=== PATIENT | female | born 1970 | race African-American/Black ===

== ENCOUNTER → 2018-10-18 | Outpatient (CLI) | payer BC ==
[~2018-10-18] MED LIST: AMOXICILLIN875 MG PO; IBU800 MG PO; IRON; LOW-OGESTREL 281 TAB PO; NO HOME MEDICATIONS; NORCO 325 MG-7.1 TAB PO; NUVARING VAG RING; PEPCID 20MG TAB20 MG PO; PERCOCET 5/321 UDTAB PO; PHENERGAN 25 TA25 MG PO; PHENERGAN25 MG RC; PRILOSEC 20MG20 MG PO; PROVENTIL0.09 MG/A1 IH; VIT D; ZITHROMAX Z PA250 MG PO
== END ==
LOC: MC.RAD 11:23
DX: Z12.31 Encounter for screening mammogram for malignant neoplasm of breast (principal)

== ENCOUNTER → 2020-12-29 | Outpatient (CLI) | payer BC ==
[~2020-12-29] VITALS: Ht 160 cm; Wt 107.5 kg
[~2020-12-29] MED LIST changes: +ANTIVERT 25MG25 MG PO; +ASPIRIN E.C. 8181 MG PO; +COZAAR 25MG25 MG/TAB PO; +CYMBALTA 30MG30 MG PO; +FLONASEALLERGY NS; +IRON TABLETS325 MG PO; +MASON NATURAL2000 IU PO; +PRENATAL TABLET PO; +SINGULAIR 110 MG/TAB PO; +ZYRTEC 10MG10 MG PO
[2020-12-29 13:32] VITALS: BP 148/79; PULSE 80
[2020-12-29 15:35] VITALS: BP 155/82; PULSE 83
== END ==
LOC: COL.RAD 12:49
DX: M48.07 Spinal stenosis, lumbosacral region (principal)
CPT/HCPCS: J3301